=== PATIENT | female | born 1945 | race Caucasian/White ===

== ENCOUNTER 2021-02-04 11:58 | Inpatient (IN) | payer MEDICARE, OTHER ==
[~2021-02-04] VITALS: Ht 170.2 cm; Wt 92.5 kg
--- NOTE | 2021-02-04 12:13 | NUR ---
PT IS IN ROOM #1B. DR ORTIZ EVALUATED THE PT.
--- NOTE | 2021-02-04 12:28 | NUR ---
PT IS RESTING IN BED COMFORTABLY. CONTINUE TO MONITOR THE PT.
[2021-02-04] MEDS ORDERED: ONDA4TAB11 PO (12:37)
[2021-02-04] MEDS ORDERED: OLAN5TAB3 PO (12:37)
[2021-02-04] MEDS ORDERED: IBUP-1953 PO (12:37)
[2021-02-04] MEDS ORDERED: ZIPR80CA2 PO (12:37)
[2021-02-04] MEDS ORDERED: OLAN10TA3 PO (12:37)
[2021-02-04] MEDS ORDERED: NICO2GUM9 BC (12:37)
[2021-02-04] MEDS ORDERED: OLAN5TAB3 IM (12:37)
[2021-02-04] MEDS ORDERED: NICO1PAT44 TP (12:37)
[2021-02-04] MEDS ORDERED: OLAN10TA3 IM (12:37)
[2021-02-04] MEDS ORDERED: ACET-73 PO (12:37)
[2021-02-04] MEDS ORDERED: CALC-953 PO (12:37)
[2021-02-04] MEDS ORDERED: LORA-259 PO (12:37)
[2021-02-04] MEDS ORDERED: SIMV-46 PO (12:37)
[2021-02-04] MEDS ORDERED: SERT100T PO (12:37)
[2021-02-04] MEDS ORDERED: LISI1TAB32 PO (12:37)
[2021-02-04 12:45] LABS: *BILIRUBIN,URIN NEGATIVE (NEGATIVE); *BLOOD, URINE NEGATIVE (NEGATIVE); *CLARITY,URINE CLEAR (CLEAR); *COLOR,URINE YELLOW (YELLOW); *KETONES,URINE NEGATIVE (NEGATIVE); *UROBILINOGEN,URINE 0.2 E.U./dl (NORMAL); LEUKOCYTE ESTERASE ,URINE NEGATIVE (NEGATIVE); NITRITE, URINE NEGATIVE (NEGATIVE); UGLUCOSE NEGATIVE (NEGATIVE)
--- NOTE | 2021-02-04 13:41 | NUR ---
CRISIS WIRE DRAWING MACHINE OPERATOR ART WAS CALLED TO EVALUATE THE PT. VIKKI IS 30 MINUTES.
--- NOTE | 2021-02-04 14:56 | NUR ---
CRISIS LOG STACKER OPERATOR ART EVALUATED THE PT. PT IS ON 72 HRS HOLD GRAVELY DISABLED.
--- NOTE | 2021-02-04 15:45 | NUR ---
GPS: Nursing Notes: Severe Agitation: Patient brought in by ER nurse to the MHU, but with severe agitation, verbal abusive, overly disrupting the unit by constantly shouting profanities and racial statements toward the staff, "FUCKEN BEANERS.. GET THE FUCK OUT OF MY COUNTRY... FUCK YOU BEANER..", constantly shouting, threatening staff, trying to dial 911, setting limits, but unable to be redirected, poor anger management, poor impulse control, restless behavior, Dr. Case paged at this time, continue to monitor for safety, continue with admitting process.
[2021-02-04] MEDS ORDERED: OLANZAPINE 10 MG VIAL IM ONE (15:50)
--- NOTE | 2021-02-04 15:55 | NUR ---
PT WAS TRANSFERED TO MHU ROOM #137A. REPORT WAS GIVEN TO RN MHU.
--- NOTE | 2021-02-04 15:57 | NUR ---
GPS: Nursing Notes: Chemical Restraint: Patient continue shouting racial statements, verbal abusive toward staff, resistant with nursing care, poor anger management, unable to follow directions due to violent behavior, "YOU ARE A FUCKEN IGNORANT.... FUCKEN LONNIE... GET THE FUCK OUT MY COUNTRY...", constantly shouting abusive racial statement, toward the staff, unable to follow directions, violent outburst without provocation, Dr. Case called and ordered: Zyprexa 10mg IM STAT for her severe agitation, stating, 'THE MOTHER [facility] DOES NOT KNOW ANYTHING...", R=20, continue to monitor for safety, continue with admission process.
[2021-02-04] MEDS ORDERED: MAG HYDROX/AL HYDROX/SIMETH 30 ML LIQUID UDC PO PRN (16:15)
[2021-02-04] MEDS ORDERED: LORAZEPAM 1 MG TABLET PO PRN (16:15)
[2021-02-04] MEDS ORDERED: TEMAZEPAM 7.5 MG CAPSULE PO PRN (16:15)
[2021-02-04] MEDS ORDERED: MAGNESIUM HYDROXIDE 30 ML LIQUID UDC PO PRN (16:15)
--- NOTE | 2021-02-04 16:27 | NUR ---
GPS: Nursing Notes: Reassessment of Chemical Restraint: Patient continue with her racist behavior toward staff, verbal abusive, "FUCKEN BEANER...", resistant with nursing care, "ALL OF YOU.. NEED TO GET THE FUCK OUT OF COUNTRY...", medication IM was helpful, patient became less disruptive, R=18, continue to monitor for safety, continue with admission process.
[2021-02-04] MEDS ORDERED: IBUPROFEN 400 MG TABLET PO PRN (19:15)
[2021-02-04] MEDS ORDERED: ONDANSETRON ODT 4 MG TAB.RAPDIS SL PRN (19:15)
[2021-02-04] MEDS ORDERED: ACETAMINOPHEN ES 500 MG TABLET PO PRN (19:15)
[2021-02-04] MEDS: NICOTINE 14 MG/24HR PATCH TD SCH (19:15)
[2021-02-04 20:11] VITALS: BP 139/54
[2021-02-04] MEDS: ACETAMINOPHEN 325 MG TABLET PO PRN (23:06)
--- NOTE | 2021-02-05 07:30 | NUR ---
Received report from RIK Moore. All questions, comments, and concerns were addressed. Received patient awake in her assigned bed. Bed is in low and locked position.
--- NOTE | 2021-02-05 08:24 | NUR ---
UR NOTE: Authorization # [id number] SW received a call from Marianne at [facility] ([phone]. [phone]) who stated that the patient is authorized for 1 day until tomorrow morning, with review due 02/06/21. Marianne stated she will be off starting tomorrow and another business case analyst will call this social services assistant.
--- NOTE | 2021-02-05 08:34 | NUR ---
FIREARMS REPORT: Broth Mixer completed and submitted a [employer] firearms report for 5150 grave disability certification. A copy of report has been placed in patient chart.
[2021-02-05 08:40] LABS: BILIRUBIN,TOTAL 0.2 mg/dL (0.2-1.0); CREATININE 1.1 mg/dL (0.6-1.3); POTASSIUM 4.4 mmol/L (3.5-5.1); TOTAL PROTEIN, SERUM 8.2 g/dL (6.4-8.2)
[2021-02-05] MEDS: LISINOPRIL 10 MG TABLET PO SCH ×2 (09:00→10:18)
[2021-02-05] MEDS: HYDROCHLOROTHIAZIDE 12.5 MG CAPSULE PO SCH ×2 (09:00→10:38)
[2021-02-05] MEDS: CALCIUM CARB/VITAMIN D 500MG-200UNITS TABLET PO SCH ×2 (09:00→10:18)
[2021-02-05] MEDS: NICOTINE 14 MG/24HR PATCH TD SCH (09:00)
--- NOTE | 2021-02-05 09:00 | NUR ---
Patient is alert and oriented. Patient is angry, agitated, demanding, and verbally abusive towards staff. Patient is threatening staff and frequently at the nurses station cursing at staff. Patient is noncooperative and noncompliant with limit setting and redirection. Patient refuses to participate in staff teaching about reason for admission and her rights as a patient. She is demanding to have her personal cell phone to make calls and her credit card so she can make purchases. Patient requires constant reality orientation. She is labile, escalates rapidly, and is impulsive.
[2021-02-05] MEDS: ACETAMINOPHEN 325 MG TABLET PO PRN (10:20)
[2021-02-05] MEDS ORDERED: GABA600T12 PO (10:28)
[2021-02-05] MEDS ORDERED: OXYB5TAB16 PO (10:28)
[2021-02-05 10:39] VITALS: BP 120/92
[2021-02-05] MEDS: GABAPENTIN 300 MG CAPSULE PO SCH ×3 (10:45→16:02)
[2021-02-05] MEDS: OXYBUTYNIN CHLORIDE 5 MG TABLET PO SCH ×2 (10:45→16:02)
--- NOTE | 2021-02-05 11:33 | NUR ---
TIO Initial Discharge Plan: Patient resides in [place]. Patient is visiting [place], [place] and does not live here. Patient states she was going to rent a hotel room. Patient states she does have any family, however per chart, she has a daughter. Patient will need assistance with placement. TIO will continue to work with patient, family, and MD to ensure a safe and proper discharge plan.
--- NOTE | 2021-02-05 11:36 | NUR ---
Treatment Plan: Patient refused to sign treatment plan due to aggressive behavior.
--- NOTE | 2021-02-05 11:44 | NUR ---
Patient at the nurses station being verbally abusive to nursing staff. She is threatening and is not redirectable. Patient is unable to contract for her own safety or the safety of others. MD notified of patient's behaviors, orders received for Zyprexa 10 mg IM once stat. Orders noted and carried out. IM administered with security present with no adverse reaction. Patient is refusing to participate in education and continues to yell at staff.
[2021-02-05] MEDS ORDERED: OLANZAPINE 10 MG VIAL IM ONE (11:45)
[2021-02-05 16:00] VITALS: BP 129/59
--- NOTE | 2021-02-05 17:15 | NUR ---
Patient is cooperative, redirectable, and less labile than before. She is communicating her needs to staff appropriately. Compliant with medications, no adverse reaction noted. patient noted with appropriate interactions with other patients.
[2021-02-05] MEDS: SIMVASTATIN 20 MG TABLET PO SCH (18:00)
[2021-02-05] MEDS: ZIPRASIDONE 20 MG CAPSULE PO SCH (20:49)
--- NOTE | 2021-02-06 02:49 | NUR ---
Received has been cooperative with care, hyperverbal, interacts with staff and certain peers. Semi fair judgement, and semi fair insight. Med compliant. Patient will remain in a psych facility for further evaluation and treatment.
[2021-02-06 07:30] VITALS: BP 155/61
[2021-02-06] MEDS: SERTRALINE HCL 100 MG TABLET PO SCH (08:58)
[2021-02-06] MEDS: OXYBUTYNIN CHLORIDE 5 MG TABLET PO SCH ×2 (08:58→16:52)
[2021-02-06] MEDS: LISINOPRIL 10 MG TABLET PO SCH (08:58)
[2021-02-06] MEDS: GABAPENTIN 300 MG CAPSULE PO SCH ×3 (08:58→16:52)
[2021-02-06] MEDS: NICOTINE 14 MG/24HR PATCH TD SCH (08:58)
[2021-02-06] MEDS: CALCIUM CARB/VITAMIN D 500MG-200UNITS TABLET PO SCH (08:58)
[2021-02-06] MEDS: HYDROCHLOROTHIAZIDE 12.5 MG CAPSULE PO SCH (09:00)
--- NOTE | 2021-02-06 09:55 | NUR ---
UR NOTE: Authorization # [id number] TIO received a call from Chelle at [facility] ([phone]) and conducted live clinical review. TIO provided patient's current mental health status, behaviors, medications, and labs. Patient is authorized from 02/06/21-02/09/21 with review due 02/10/21. TIO requested assistance with placement and Chelle stated they do not assist with placement needs.
[2021-02-06] MEDS: IBUPROFEN 600 MG TABLET PO PRN ×2 (13:15→21:31)
--- NOTE | 2021-02-06 15:38 | NUR ---
UR NOTE: Authorization # [id number] TIO contacted Chelle at [facility] ([phone]) and left a voicemail to fax this SW confirmation of the authorization.
[2021-02-06 15:53] VITALS: BP 134/56
[2021-02-06] MEDS: ACETAMINOPHEN 325 MG TABLET PO PRN (17:39)
[2021-02-06] MEDS: SIMVASTATIN 20 MG TABLET PO SCH (18:01)
[2021-02-06 20:00] VITALS: BP 153/69
--- NOTE | 2021-02-06 20:00 | NUR ---
RECEIVED PATIENT IN THE DAY ROOM WRITING ON A PAPER. SHE IS NOTED A/O X 3 ABLE TO AMBULATE WITH STEADY GAIT AND ABLE TO VERBALIZED HER FEELINGS. UPON INTERVIEW, PATIENT NOTED MANIPULATIVE AND DEMANDING, "I AM NOT GETTING MY VITAMINS" WHEN IN FACT, ALL HER HOME MEDS, INCLUDING HER VITAMINS, WERE RECONCILE. SHE HAS POOR INSIGHT AND JUDGMENT INTO HER ADMISSION TO MHU, SHE STATED, "I AM HERE BY MISTAKE, I SHOULD NOT BE HERE, THEY LIE AND LIE". PATIENT NEEDS REDIRECTION AND REASSURANCE. SHE DENIED SI/HI/VA/AH. SHE IS REASSURED FOR HER SAFETY. V/S STABLE SHE WAS GIVEN PO FLUIDS AND SNACKS. SAFETY AND FALL PRECAUTION IN PLACE. WILL [id number] TO MONITOR,
[2021-02-06] MEDS: ZIPRASIDONE 20 MG CAPSULE PO SCH (21:09)
[2021-02-07] MEDS: IBUPROFEN 600 MG TABLET PO PRN (06:18)
[2021-02-07 07:30] VITALS: BP 139/55
--- NOTE | 2021-02-07 08:12 | NUR ---
Discharge Note: Patient is choosing to be discharged AMA and Dr. Case is agreeable. Patient requesting to be discharged to [facility] [address] [place] [address] ([phone]). Patient is provided with Taxi transportation to [employer] [address] [place] [address] at 10AM today. [facility] case loader operator Payton ([phone]) provided Amtrack Ticket departing at 3:38pm to [facility] in [place]. Patient is alert and oriented x4 and is aware and agreeable with discharge plan. Patient denies suicidal or homicidal ideation. Patient denies visual and auditory hallucinations. Patient presents with appropriate mood and congruent affect. Patient is referred to [facility] [address] [place] [address] ([phone]). Patient is referred to [facility] [address] [address] Ruiz ([phone]). Patient signed the Homeless Patient Waiver Form. Patient was provided with the homeless halfway packet, which includes a list of emergency shelters, housing resources, drop-in centers, and showers/hot meals centers. This also included the Homeless Information Hotline (110)-822-4573 or 211, [place] for [employer] , and the [facility] (488)-131-1103. Patient was also provided with outpatient mental health resources to [facility] Crisis Line , and the National Suicide Prevention Lifeline . Patient signed the homeless waiver form and a copy was placed in the chart.
[2021-02-07 08:16] VITALS: BP 139/55
[2021-02-07] MEDS: GABAPENTIN 300 MG CAPSULE PO SCH (08:16)
[2021-02-07] MEDS: OXYBUTYNIN CHLORIDE 5 MG TABLET PO SCH (08:16)
[2021-02-07] MEDS: CALCIUM CARB/VITAMIN D 500MG-200UNITS TABLET PO SCH (08:16)
[2021-02-07] MEDS: SERTRALINE HCL 100 MG TABLET PO SCH (08:16)
[2021-02-07] MEDS: LISINOPRIL 10 MG TABLET PO SCH (08:16)
[2021-02-07] MEDS: HYDROCHLOROTHIAZIDE 12.5 MG CAPSULE PO SCH (08:16)
--- NOTE | 2021-02-07 09:07 | NUR ---
UR NOTE: Authorization # [id number] TIO called Marianne at [facility] ([phone] ext. [phone]) and informed of patient's discharge today AMA and provided discharge medication information. TIO requested a call back and requested for a fax confirmation of authorization.
--- NOTE | 2021-02-07 09:41 | NUR ---
UR NOTE: Authorization # [id number] TIO called Chelle at [facility] ([phone]. [phone]) and informed of patient's discharge today AMA and provided discharge medication information. TIO requested a call back and requested for a fax confirmation of authorization.
--- NOTE | 2021-02-07 10:16 | NUR ---
UR NOTE: Authorization # [id number] TIO spoke with Chelle at [facility] ([phone]. [phone]) and discussed patient's discharge and provided discharge clinicals. TIO requested a faxed confirmation for authorization. Chelle stated she will request it and fax it to this SW.
--- NOTE | 2021-02-07 11:29 | NUR ---
Patient discharge around 1120am. harvesting supervisor by taxi cab. Patient assisted to the lobby with nursing staff. Belonging list given and signed form by the patient. Patient is choosing to be discharged AMA and Dr. Case is agreeable. Patient requesting to be discharged to [facility] [address] [place] [address] ([phone]). [facility] [address] [place] [address] at 10AM today. [facility] dependency case manager Payton ([phone]) provided Amtrack Ticket departing at 3:38pm to [facility] in [place]. Patient is alert and oriented x4 and is aware and agreeable with discharge plan. Patient denies suicidal or homicidal ideation. Patient denies visual and auditory hallucinations. Patient presents with appropriate mood and congruent affect. Patient is referred to [facility] [address] [place] [address] [place] [address] ([phone]). Patient is referred to [facility] [address] [facility] [address] [address] Ruiz ([phone]). Patient signed the Homeless Patient Waiver Form. Patient was provided with the homeless senior care packet, which includes a list of emergency shelters, housing resources, drop-in centers, and showers/hot meals centers. This also included the Homeless Information Hotline (274)-097-4397 or 211, [employer] for [employer] , and the [facility] (179)-536-8352. Patient was also provided with outpatient mental health resources to [facility] Crisis Line , and the National Suicide Prevention Lifeline . Patient signed the homeless waiver form and a copy was placed in the chart. Addendum: 02/07/21 at 1132 by LORETTA HILL RN RN Patient not in distress, discharge instruction given. AMA form signed by patient.
--- NOTE | 2021-02-10 09:17 | NUR ---
UR NOTE: Authorization # [id number] TIO spoke with Chelle at [facility] ([phone]. [phone]) requested again a fax confirmation for authorization. Chelle stated she will request it again and call this SW back.
== END 2021-02-07 11:20 | disposition left against medical advice (07) | DRG 885 ==
LOC: ER 11:58 → GPS 14:53
PROVIDERS: ADMIT Psychiatry & Neurology Psychiatry; ATTEND Student in an Organized Health Care Education/Training Program
DX: F31.2 Bipolar disorder, current episode manic severe with psychotic features (principal); E78.5 Hyperlipidemia, unspecified; R00.1 Bradycardia, unspecified; E86.0 Dehydration; I10 Essential (primary) hypertension; K21.9 Gastro-esophageal reflux disease without esophagitis; R73.03 Prediabetes; Z79.899 Other long term (current) drug therapy; R45.1 Restlessness and agitation; R79.89 Other specified abnormal findings of blood chemistry; M19.90 Unspecified osteoarthritis, unspecified site; E89.2 Postprocedural hypoparathyroidism
CPT/HCPCS: 36415; 71045; 84443; 93005; A4663; A9150; J2358